=== PATIENT | male | born 1950 | race Caucasian/White ===

== ENCOUNTER 2016-09-15 21:58 | Emergency (ER) | payer MEDICARE, OTHER ==
[~2016-09-15] VITALS: Ht 165.1 cm; Wt 97.7 kg
[2016-09-15 22:00] VITALS: BP 107/53; PULSE 85; RESP 16; O2SAT 99
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
[2016-09-15] MEDS ORDERED: HYDROmorphone 1 mg/mL Inj IM ONE (22:55)
[2016-09-16] MEDS ORDERED: HYDROmorphone 1 mg/mL Inj IM ONE (00:15)
--- NOTE | 2016-09-16 08:38 | DRSVH ---
PROCEDURE: X-RAY LEFT KNEE, THREE VIEWS ([id number]) INDICATIONS: injury TECHNIQUE: 3 views of the knee were acquired. COMPARISON: [facility], CT, CT KNEE LT WO CON, 09/15/2016, 23:20. FINDINGS: Bones: There is linear lucencies extending through the lateral tibial plateau suspicious for minimall y displaced fracture. There is lucency also involving the medial aspect of the distal femoral epicon dyle which may be related to an old fracture. Correlate clinically. Mild tricompartmental knee join t narrowing with periarticular osteophyte formation. Soft tissues: Small joint effusion. No suspicious soft tissue calcifications. IMPRESSION: Linear lucencies extending through the lateral tibial plateau suspicious for fracture and lucency along the medial aspect of the distal femoral epicondyle which may be related to an old frac ture. Recommend clinical correlation. Dictated by: Darrick HERNANDEZ Interpreted: Elliott Stinson MD on 09/16/2016 at 8:32 Transcribed by: DULCE on 09/16/2016 at 8:37 Approved by: Elliott Stinson M.D. on 09/16/2016 at 10:36
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
--- NOTE | 2016-09-16 08:48 | DRSVH ---
PROCEDURE: X-RAY RIGHT KNEE, THREE VIEWS ([id number]) INDICATIONS: trauma and pain TECHNIQUE: 3 views of the knee were acquired. COMPARISON: [facility], CR, XR KNEE 3VW LT, 09/15/2016, 22:36. [facility], C T, CT KNEE LT WO CON, 09/15/2016, 23:20. FINDINGS: Bones: No fractures or dislocations. No suspicious bony lesions. Minimal tricompartmental knee richa nt narrowing with periarticular osteophyte formation. Soft tissues: No joint effusion. No suspicious soft tissue calcifications. IMPRESSION: No displaced fracture seen. If there is continued pain, followup exam or additional kailyn ging such as MRI or CT could be performed for further assessment. Dictated by: Darrick Garcia RRA Interpreted: Elliott Stinson MD on 09/16/2016 at 8:46 Transcribed by: DULCE on 09/16/2016 at 8:47 Approved by: Elliott Stinson M.D. on 09/16/2016 at 10:36
--- NOTE | 2016-09-16 08:49 | DRSVH ---
PROCEDURE: X-RAY LEFT ANKLE, MINIMUM THREE VIEWS ([id number]) INDICATIONS: trauma pain TECHNIQUE: 3 views of the ankle were acquired. COMPARISON: None. FINDINGS: Bones: No fractures or dislocations. Ankle mortise is normally aligned. No suspicious bony lesions . Calcaneal spurring. Soft tissues: No tibiotalar joint effusion. Achilles tendon appears normal. Lateral malleolar soft tissue swelling. IMPRESSION: No displaced fracture seen. If there is continued pain, followup exam or additional kailyn ging such as MRI or CT could be performed for further assessment. Dictated by: Darrick Garcia [facility] Interpreted: Elliott Stinson MD on 09/16/2016 at 8:47 Transcribed by: DULCE on 09/16/2016 at 8:48 Approved by: Elliott Stinson M.D. on 09/16/2016 at 10:36
--- NOTE | 2016-09-16 09:08 | DRSVH ---
PROCEDURE: CT KNEE LEFT W/O CONTRAST ([id number]) INDICATIONS: trauma, abnormal xrays TECHNIQUE: Noncontrast 1-1.5 mm axial sections acquired from the mid-patella to the proximal tibia, with coronal and sagittal reformats. COMPARISON: [facility], CR, XR KNEE 3VW LT, 09/15/2016, 22:36. [facility], C R, XR KNEE 3VW RT, 09/15/2016, 23:13. FINDINGS: Image quality: Excellent. Bones: There is a comminuted impacted anterolateral tibial plateau fracture, with depression of the a rticular surface (which has fracture planes extending into it laterally) by approximately 3 mm from e xpected position. There is also a fracture that is vertically oriented involving the far medial bord er of the medial femoral condyle. Soft tissues: Moderate soft tissue swelling IMPRESSION: Significant traumatic injury to the left knee has occurred, involving both the medial fem oral condyle vertically oriented fracture peripherally, minimally displaced, and both horizontal and vertically oriented fractures involving the lateral tibial plateau anteriorly with depression of the comminuted articular surface margins by at least 3 mm from anatomic alignment. Dictated by: Elliott Stinson M.D. on 09/16/2016 at 9:02 Approved by: Elliott Stinson M.D. on 09/16/2016 at 9:06
[2016-09-18] MEDS ORDERED: INSU100I13 SUBQ (11:46)
[2016-09-18] MEDS ORDERED: METF-496 PO (11:52)
[2016-09-18] MEDS ORDERED: MELA3TAB46 PO (11:52)
[2016-09-18] MEDS ORDERED: MUPI15CR11 TOP (11:52)
[2016-09-18] MEDS ORDERED: CEPH500C PO (11:52)
[2016-09-18] MEDS ORDERED: SERT20OR6 PO (11:52)
[2016-09-18] MEDS ORDERED: LISI-567 PO (11:52)
[2016-09-18] MEDS ORDERED: HYDR-3089 PO (11:52)
[2016-09-18] MEDS ORDERED: POTA99TA21 PO (11:52)
[2016-09-18] MEDS ORDERED: ATRV10T PO (11:52)
== END 2016-09-16 01:49 | disposition home or self-care (01) ==
LOC: SED 21:58
DX: S82.142A Displaced bicondylar fracture of left tibia, initial encounter for closed fracture (principal); V27.4XXA Motorcycle driver injured in collision with fixed or stationary object in traffic accident, initial encounter; Y93.9 Activity, unspecified; Y92.410 Unspecified street and highway as the place of occurrence of the external cause; Y99.9 Unspecified external cause status; E11.9 Type 2 diabetes mellitus without complications
CPT/HCPCS: 73562; 73610; 73630; 73700; 96372; 99285; J1170; J1885

== ENCOUNTER 2016-09-19 13:09 | Inpatient (IN) | payer MEDICARE, OTHER ==
[~2016-09-19] VITALS: Ht 165.1 cm; Wt 99.3 kg
[2016-09-19] VITALS (9 sets, daily range): BP systolic 102–122; BP diastolic 57–72; PULSE 88–96; RESP 14–18; O2SAT 96–100
[2016-09-19] MEDS: Lactated Ringer's 1,000 ML IV SCH ×4 (05:00→15:00)
[~2016-09-19 13:09] MED LIST: ATRV10T PO; CEPH500C PO; CeFAZolin 2 Gm/50 mL D5W IV Premix IV ONE; HYDR-3089 PO; INSU100I13 SUBQ; LISI-567 PO; MELA3TAB46 PO; METF-496 PO; MUPI15CR11 TOP; POTA99TA21 PO; SERT20OR6 PO
[2016-09-19] MEDS ORDERED: Phenylephrine 10,000 mCg/mL Inj ONE (13:10)
[2016-09-19] MEDS ORDERED: Succinylcholine Chloride 20 mg/mL 5 mL Inj ONE (13:10)
[2016-09-19] MEDS ORDERED: fentaNYL-PF 50 mCg/mL 2 mL Inj ONE (13:10)
[2016-09-19] MEDS ORDERED: Phenylephrine/NS-PF 100 mCg/mL 5 mL Syringe IVPUSH ONE (13:10)
[2016-09-19] MEDS ORDERED: Propofol 10,000 mCg/mL 20 mL Inj ONE (13:10)
[2016-09-19] MEDS ORDERED: EPHEDrine/NS 5 mg/mL 5 mL Syringe ONE (13:10)
[2016-09-19] MEDS ORDERED: OMEG-38 PO (13:51)
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
[2016-09-19] MEDS ORDERED: Lactated Ringer's 500 ML IV PRN (14:17)
[2016-09-19] MEDS ORDERED: Lactated Ringer's 1,000 ML IV SCH (14:17)
[2016-09-19] MEDS ORDERED: hydrALAZINE 20 mg/mL Inj IVPUSH PRN (14:20)
[2016-09-19] MEDS ORDERED: fentaNYL-PF 50 mCg/mL 2 mL Inj IVPUSH PRN (14:20)
[2016-09-19] MEDS ORDERED: Atropine 0.4 mg/mL Inj IVPUSH PRN (14:20)
[2016-09-19] MEDS ORDERED: Labetalol 5 mg/mL 4 mL Inj IV PRN (14:20)
[2016-09-19] MEDS ORDERED: Dexamethasone 4 mg/mL Inj IVPUSH PRN (14:20)
[2016-09-19] MEDS ORDERED: MetoCLOpramide 5 mg/mL 2 mL Inj IVPUSH PRN (14:20)
[2016-09-19] MEDS ORDERED: EPHEDrine Sulfate 50 mg/mL Inj IVPUSH PRN (14:20)
[2016-09-19] MEDS ORDERED: Ondansetron 2 mg/mL 2 mL Inj IVPUSH PRN (14:20)
[2016-09-19] MEDS ORDERED: HYDROmorphone 1 mg/mL Inj IVPUSH PRN (14:20)
[2016-09-19] MEDS ORDERED: Phenylephrine 10,000 mCg/mL Inj IVPUSH PRN (14:20)
[2016-09-19] MEDS ORDERED: CeFAZolin 2 Gm/50 mL D5W Duplex Bag IV ONE (15:53)
[2016-09-19] MEDS ORDERED: Lactated Ringer's 1,000 ML IV ONE (19:10)
[2016-09-19] MEDS ORDERED: Bupivacaine-MPF 0.5% 30 mL Inj INFILTRATE ONE (19:11)
--- NOTE | 2016-09-19 19:22 | DRSVH ---
PROCEDURE: X-RAY LEFT KNEE, ONE OR TWO VIEWS ([id number]) INDICATIONS: ORIF LEFT TIBIA TECHNIQUE: 5 views of the knee were acquired. COMPARISON: [facility], CT, CT KNEE LT WO CON, 09/15/2016, 23:20. FINDINGS: Bones: No previously unrecognized fractures or dislocations. No suspicious bony lesions. Excellent anatomic alignment has been established after placement of a lateral fixation plate and multiple tra nsverse screws crossing an area of tibial plateau fracture identified during plain film and CT scanni ng 09/15/16. Soft tissues: No joint effusion. No suspicious soft tissue calcifications. IMPRESSION: Virtual anatomic alignment established after ORIF of the moderately depressed tibial derrick teau fracture initially identified 4 days ago. Dictated by: Elliott Stinson M.D. on 09/19/2016 at 19:19 Approved by: Elliott Stinson M.D. on 09/19/2016 at 19:20
--- NOTE | 2016-09-19 20:03 | PCM.ANEP1 ---
Post Anesthesia PACU Phase 1 Assessment Vital Signs Vital Signs Date Time Temp Pulse Resp B/P Pulse Ox O2 Delivery O2 Flow Rate FiO2 09/19/16 19:55 36.8 96 15 110/72 100 Simple Mask 8 09/19/16 13:39 35.9 91 18 107/57 97 Room Air Anesthetic Administered: GA, Regional Block Level of Alertness: Awake, talking Pain: No Nausea or Vomiting: No CV Function & Hydration Stable: Yes Airway Device: Lungs: Normal Air Movement PACU Phase 2 Assessment Patient Instructions Provided: N/A Blas Thompson MD Sep 19, 2016 20:03
--- NOTE | 2016-09-19 20:41 | DRSVH ---
PROCEDURE: X-RAY LEFT KNEE, THREE VIEWS ([id number]) INDICATIONS: status post Left tibia plateau fix TECHNIQUE: 3 views of the knee were acquired. COMPARISON: Recent trauma CT and also postoperative digital acquisition imaging at termination of ti bial plateau fracture fixation procedure earlier same day. FINDINGS: Bones: No fractures or dislocations. No suspicious bony lesions. Soft tissues: No joint effusion. No suspicious soft tissue calcifications. IMPRESSION: Normal alignment established after ORIF of a previously identified depressed tibial plat eau fracture. Dictated by: Elliott Stinson M.D. on 09/19/2016 at 20:39 Approved by: Elliott Stinson M.D. on 09/19/2016 at 20:39
[2016-09-20] MEDS: CeFAZolin Inj 2 GM in IV Premix 1 EACH IV SCH ×2 (00:46→09:08)
[2016-09-20] MEDS: Lactated Ringer's 1,000 ML IV SCH ×2 (00:46→09:56)
[2016-09-20] MEDS: oxyCODONE-Acetamin 5-325 mg Tablet PO PRN ×4 (00:51→13:09)
[2016-09-20] MEDS: hydrOXYzine Pamoate 25 mg Capsule PO PRN ×4 (00:51→13:08)
--- NOTE | 2016-09-20 01:22 | NUR ---
Transfer Patient arrived to unit alert and oriented, transferred to bed with slide board. Denial of pain at that time. Oriented to room and call light. Bed in low position, call light within reach, intentional rounding.
--- NOTE | 2016-09-20 04:49 | NUR ---
Discomfort Patient complaining of "Tightness" in left ankle and posterior thigh. Pain medication administered, repositioning, and Ice applied. Left foot is warm, has cap refill and straps on brace has room for at least one finger. Will continue to monitor.
[2016-09-20 05:00] VITALS: BP_SYST 124; BP_SYST 154; BP_DIAS 67; BP_DIAS 77; PULSE 114; PULSE 85; RESP 18; O2SAT 93; O2SAT 96
[2016-09-20 08:42] VITALS: BP 149/79; PULSE 112; RESP 18; O2SAT 95
--- NOTE | 2016-09-20 11:05 | PCM.PNORTH ---
Subjective Date of Service: Sep 20, 2016 Visit Information: Reason for Visit Left Tibial Plateau Fracture Surgery/Surgery Date ORIF L TIB FX 09/19/16 Post-Op Day # 1 Date of Admission: Hospital Day # Subjective Patient is complaining of thigh pain as well as discomfort in his foot. He states the pain in his foot is worse than the pain in his knee or thigh. He states at baseline he has leg spasms and has been on narcotics chronically. He states he knee is feeling well. He states he has a boot for his right foot in the closet right now and verbalizes his agreement to wear the boot at all times while ambulating to protect his broken toes. Postop General: No Complaints, No Shortness of Breath, No Chest Pain Pain Management: PO Objective Exam Objective Patient laying in bed Vital Signs and I/O Vital Sign - Last Date Time Temp Pulse Resp B/P Pulse Ox O2 Delivery O2 Flow Rate FiO2 09/20/16 08:42 36.8 112 18 149/79 95 Room Air 09/19/16 21:30 2.00 Intake and Output 09/19/16 09/19/16 09/20/16 Cumulative From/Thru 15:00 23:00 07:00 09/18/16 10:55 - 09/20/16 06:45 Intake Total 1000 ml 475 ml 600 ml 2075 ml Output Total 20 ml 900 ml 920 ml Balance 1000 ml 455 ml -300 ml 1155 ml Intake Oral 600 ml 600 ml IV Total 1000 ml 475 ml 1475 ml Output Urine Total 900 ml 900 ml Estimated Blood Loss 20 ml 20 ml # Bowel Movements 1 1 General Appearance: Alert, Oriented X3, Cooperative, No Acute Distress Extremities: Distal Pulses Palpable, Warm, Thigh & Calf Soft/Nontender, Tenderness/Swelling Noted (Foot appears moderately swollen), Cyanotic Postop Sensory Motor: Distal Motor Intact (able to do a straight leg raise), Movement in Toes, Distal Sensation Intact, NVI Distally SURGICAL WOUND : Wound Location/Description Perioperative dressings are clean, dry and intact. Brace is on and locked in extension, but a little loose. Incision General Appearance: No Direct Observation Activity: Ambulate with PT (NWB on LLE, WBAT c boot on RLE) Assessment & Plan Impression Postoperative day #1 left ORIF tibial plateau fracture Problems: Plan Weightbearing: NWB with post-op brace locked in extension on LLE, WBAT with a walking boot on RLE DVT prophylaxis: Lovenox 40 mg subcutaneous 3 weeks Physical therapy for transfers, progressive ambulation, strengthening Wound care: Keep dressings clean, dry and intact until follow up appointment. Wrap foot with patricia as well to reduce swelling. Analgesia: 10/325. You may take 1 every 6 hours. Please do not take more than one. Your fracture will be very uncomfortable and you can alleviate some of the discomfort by icing and elevating. Elevate ankle over knee, knee over hip so that all of the swelling does not pool into your foot and make your foot more uncomfortable. Discharge plan: Discharge home today. Follow-up plan: In 2 weeks at [facility] with ROSEMARY for wound check and xrays of right foot and at [address] Pena with x-rays of left knee. Zuly Echevarria PA-C Sep 20, 2016 11:05
--- NOTE | 2016-09-20 11:11 | PCM.DIOPOR ---
OP Ortho Discharge Instruction Dates of Hospitalization Date of Discharge: Sep 20, 2016 Providers Admitting Physician: Primary Care Physician: Tristan Morales MD Attending Physician: Hugh Pena MD Diagnosis at Time of Discharge Post operative diagnosis Status post left ORIF of the tibial plateau fracture Diet Discharge Diet: No restrictions Activity Activity-General: Be up and about, Elevate & ice extremity (5-6 times a day) Discharge Assist Device: Front Wheeled Walker Dressing and Incisional Care Dressing Care: Keep dressing clean, dry & intact Hygiene: No showering, DO NOT soak incision under water, NO bathtub, hot tub or whirlpool Additional Instructions Discharge Instructions Weightbearing: Nonweightbearing with post-op brace locked in extension on left lower extremity, weight-bear to tolerance with a walking boot on right lower extremity. DO NOT remove brace, DO NOT put any weight on the left leg. DVT prophylaxis: Lovenox 40 mg subcutaneous 3 weeks Wound care: Keep dressings clean, dry and intact until follow up appointment. Wrap foot with patricia as well to reduce swelling. Analgesia: Percocet 10/325mg. You may take 1 every 6 hours. Please do not take more than one. Your fracture will be very uncomfortable and you can alleviate some of the discomfort by icing and elevating. Elevate ankle over knee, knee over hip so that all of the swelling does not pool into your foot and make your foot more uncomfortable. Discharge plan: Discharge home today. Follow-up plan: In 2 weeks at [facility] with ROSEMARY for wound check and xrays of right foot and at [address] Pena with x-rays of left knee. Zuly Echevarria PA-C Sep 20, 2016 11:11
[2016-09-20] MEDS ORDERED: HYDR-3797 PO (11:12)
[2016-09-20] MEDS ORDERED: OXYC-466 PO (11:12)
--- NOTE | 2016-09-20 11:15 | PCM.DC.ORT ---
Discharge Summary Date of Service: Sep 20, 2016 Date of Hospital Admission: Date of Surgery: Sep 19, 2016 Date of Discharge: Sep 20, 2016 Reason for Hospitalization: Left tibial plateau fracture Procedures Performed: ORIF left tibial plateau fracture Hospital Course: The patient was admitted to the hospital on 09/19/2016 and underwent the above procedure. Antibiotic prophylaxis consisting of Ancef and vancomycin. The surgeon was Dr. Pena. Patient tolerated the procedure well and was transferred to recovery room in stable condition. Patient had physical therapy to work on ambulation and transfers. Pain was managed with Percocet and Vistaril. DVT prophylaxis: Lovenox 40 mg subcutaneous daily and SCDs. Hospital course was complicated by metatarsal fractures of the right foot limiting mobility. Patient was able to perform adequately enough to be discharged home on postop day 1. Follow-up: at [facility] 2 weeks postop for wound check and at [address] Pena with x-ray. Diagnosis at Time of Discharge Status post left ORIF tibial plateau fracture Problems: Discharge Instructions: Weightbearing: NWB with post-op brace locked in extension on LLE, WBAT with a walking boot on RLE DVT prophylaxis: Lovenox 40 mg subcutaneous 3 weeks Physical therapy for transfers, progressive ambulation, strengthening Wound care: Keep dressings clean, dry and intact until follow up appointment. Wrap foot with patricia as well to reduce swelling. Analgesia: 10/325. You may take 1 every 6 hours. Please do not take more than one. Your fracture will be very uncomfortable and you can alleviate some of the discomfort by icing and elevating. Elevate ankle over knee, knee over hip so that all of the swelling does not pool into your foot and make your foot more uncomfortable. Discharge plan: Discharge home today. Follow-up plan: In 2 weeks at [facility] with PA for wound check and xrays of right foot and at [address] Pena with x-rays of left knee. Atorvastatin (Lipitor) 10 Mg Tab 10 MG PO DAILY Cephalexin (Cephalexin) 500 Mg Capsule 500 MG PO TID Hydroxyzine Pamoate (HydrOXYzine Pamoate) 25 Mg Capsule 25 MG PO Q6H PRN PRN For Itching Insulin Glargine (Lantus U100 Solostar Insulin Pen) 100 Unit/1 Ml Insuln.pen 40 UNIT SUBQ QPM Lisinopril (Lisinopril) 20 Mg Tablet 20 MG PO DAILY Melatonin (Melatonin) 3 Mg Tab.rapdis 3 MG PO DAILY Metformin ER (Metformin ER) 1,000 Mg Tablet 1,000 MG PO DAILY Mupirocin Calcium (Mupirocin Cream) 15 Gm Cream..g. 1 APPL TOP TID [place]-3/Dha/Epa/Fish Oil (Fish Oil 1,000 mg Softgel) 1 Each Capsule 1 EACH PO BID Potassium Gluconate (Potassium) 99 Mg Tablet 99 MG PO DAILY Sertraline HCl (Sertraline) 20 Mg/1 Ml Oral.conc 100 MG PO BID oxyCODONE-Acetaminophen 10-325 mg (oxyCODONE-Acetaminophen 10-325 mg) 1 Each Tablet 1 TABLET PO Q6H PRN PRN For Pain Zuly Echevarria PA-C Sep 20, 2016 11:15
--- NOTE | 2016-09-20 13:24 | NUR ---
discharge home. discharge instructions, medications and follow-up plan reviewed with patient and . 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 reinforced non-weight bearing on left leg until follow-up appointment. both patient and spouse verbalized understanding. IV DC'd intact. patient escorted to car via wheelchair.
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
== END 2016-09-20 13:17 | disposition home or self-care (01) | DRG 494 ==
LOC: SAS 13:09 → OSC 21:19 → SAS 21:19 → OSC 21:19 → SAS 09-20 13:17 → OSC 09-20 13:17
PROVIDERS: ADMIT Orthopaedic Surgery; ATTEND Orthopaedic Surgery
PROC: 0QSH04Z Reposition Left Tibia with Internal Fixation Device, Open Approach (ICD-10-PCS; principal; 2016-09-19 14:45)
DX: S82.122A Displaced fracture of lateral condyle of left tibia, initial encounter for closed fracture (principal); I10 Essential (primary) hypertension; F32.9 Major depressive disorder, single episode, unspecified; E11.9 Type 2 diabetes mellitus without complications; Z79.4 Long term (current) use of insulin; V29.88XA Motorcycle rider (driver) (passenger) injured in other specified transport accidents, initial encounter; Y93.9 Activity, unspecified; Y92.488 Other paved roadways as the place of occurrence of the external cause